=== PATIENT | female | born 1960 | race African-American/Black ===

== ENCOUNTER 2024-09-03 15:53 | Emergency (ER) | payer BC, OTHER ==
[~2024-09-03] VITALS: Ht 165.1 cm; Wt 64.0 kg
[~2024-09-03 15:53] MED LIST: AMLO2.5T45 PO; CLON0.2T PO; CLON0.5T4 PO; GABA600T PO; RISP-29 PO; ZOLP10TA6 PO
[2024-09-03 15:58] VITALS: BP 168/101; PULSE 78; RESP 18; TEMP 37.1; O2SAT 99
[2024-09-03 18:16] VITALS: TEMP 98.7
[2024-09-03] MEDS: ACETAMINOPHEN 325MG TABLET PO STA (18:16)
== END 2024-09-03 18:18 | disposition home or self-care (01) ==
LOC: ER 15:53
DX: S70.02XA Contusion of left hip, initial encounter (principal); S09.90XA Unspecified injury of head, initial encounter; Z79.899 Other long term (current) drug therapy; I10 Essential (primary) hypertension; W07.XXXA Fall from chair, initial encounter; Y93.89 Activity, other specified; Y92.89 Other specified places as the place of occurrence of the external cause; Y99.8 Other external cause status
CPT/HCPCS: 99283